=== PATIENT | female | born 1940 | race Caucasian/White ===

== ENCOUNTER 2022-06-15 04:33 | Day surgery (SDC) | payer OTHER, MEDICARE ==
[2022-06-01 16:43] VITALS: BMI 21.4
[2022-06-15] MEDS ORDERED: POVIDONE-IODINE OINTMENT 10% - 28.4 GM TUBE ONE (14:19)
[2022-06-15] MEDS ORDERED: LIDOCAINE HCL 1%, 10 MG/ML (20ML VIAL) ONE ×2 (14:19→14:20)
[2022-06-15] MEDS ORDERED: HEPARIN NA (PORCINE) 5,000 UNITS/ML 1ML VIAL ONE (14:20)
[2022-06-15] MEDS ORDERED: PROPOFOL 20 ML ONE (15:37)
[2022-06-15] MEDS ORDERED: FENTANYL CITRATE/PF 50 MCG/ML VIAL ONE ×2 (15:37→15:38)
[2022-06-15] MEDS ORDERED: MIDAZOLAM HCL 2 MG/2 ML SINGLE DOSE VIAL ONE (15:37)
[2022-06-15] MEDS ORDERED: ceFAZolin SODIUM 1 GM VIAL IVPB ONE (15:58)
[2022-06-15] MEDS ORDERED: PAPAVERINE HCL 30 MG/1 ML 10 ML VIAL NR ONE (16:13)
[2022-06-15] MEDS ORDERED: LIDOCAINE HCL 1%, 10 MG/ML (20ML VIAL) INF ONE (16:16)
[2022-06-15 19:51] VITALS: RESP 20; TEMP 97.3
[2022-06-15 19:54] VITALS: BP 162/65; PULSE 61
== END 2022-06-15 19:07 | disposition home or self-care (01) ==
LOC: JASU-SURG 04:33
PROVIDERS: ATTEND Surgery
PROC: 031C3ZF Bypass Left Radial Artery to Lower Arm Vein, Percutaneous Approach (ICD-10-PCS; principal; 2022-06-15 15:30)
DX: I12.0 Hypertensive chronic kidney disease with stage 5 chronic kidney disease or end stage renal disease (principal); N18.6 End stage renal disease
CPT/HCPCS: 94760; J1644